=== PATIENT | male | born 1945 | race Caucasian/White ===

== ENCOUNTER → 2018-06-15 | Outpatient (CLI) | payer MEDICARE, BC | LOC: COL.LAB 14:02 | DX: Z53.9 Procedure and treatment not carried out, unspecified reason (principal) ==

== ENCOUNTER → 2018-06-15 | Outpatient (CLI) | payer MEDICARE, BC ==
[2018-06-15 16:31] LABS: THYROID STIMULATING HORMONE 3.24 uIU/mL (0.465-4.680)
== END ==
LOC: COL.LAB 14:02
PROVIDERS: Internal Medicine
DX: Z01.89 Encounter for other specified special examinations (principal)

== ENCOUNTER → 2018-06-15 | Outpatient (CLI) | payer MEDICARE, BC ==
[2018-06-15 15:45] LABS: CHOLESTEROL RISK RATIO 5.1
== END ==
LOC: COL.LAB 14:05
PROVIDERS: Family Medicine
DX: E78.5 Hyperlipidemia, unspecified (principal)

== ENCOUNTER → 2019-05-07 | Outpatient (CLI) | payer MEDICARE, BC | LOC: COL.RAD 10:00 | DX: M48.02 Spinal stenosis, cervical region (principal); M50.00 Cervical disc disorder with myelopathy, unspecified cervical region; M47.12 Other spondylosis with myelopathy, cervical region; G95.89 Other specified diseases of spinal cord; I77.810 Thoracic aortic ectasia; M99.71 Connective tissue and disc stenosis of intervertebral foramina of cervical region | CPT/HCPCS: Q9967 ==

== ENCOUNTER → 2023-02-23 | Outpatient (CLI) | payer MEDICARE, BC | LOC: COL.LAB 15:05 | DX: E03.9 Hypothyroidism, unspecified (principal) ==

== ENCOUNTER → 2023-12-14 | Outpatient (CLI) | payer MEDICARE, BC | LOC: COL.LAB 11:34 | DX: E03.9 Hypothyroidism, unspecified (principal) ==